=== PATIENT | female | born 1990 | race American Indian/Alaskan Native ===

== ENCOUNTER 2024-03-10 04:31 | Day surgery (SDC) | payer OTHER ==
[2024-03-09 09:32] VITALS: BMI 34.0
[2024-03-10] MEDS ORDERED: PROPOFOL 20 ML ONE (08:13)
[2024-03-10] MEDS ORDERED: FENTANYL CITRATE/PF 50 MCG/ML VIAL ONE ×6 (08:13→10:40)
[2024-03-10] MEDS ORDERED: LIDOCAINE HCL/PF 2% SDV 5ML VIAL ONE (08:13)
[2024-03-10] MEDS ORDERED: MIDAZOLAM HCL 2 MG/2 ML SINGLE DOSE VIAL ONE (08:13)
[2024-03-10] MEDS ORDERED: DEXTROSE 5%-0.45% SALINE 1,000 ML IV SCH (08:30)
[2024-03-10] MEDS ORDERED: ceFAZolin SODIUM 1 GM VIAL ONE (09:07)
[2024-03-10] MEDS ORDERED: DEXAMETHASONE SOD PHOSPHATE 4 MG/1 ML VIAL ONE (09:07)
[2024-03-10] MEDS ORDERED: LIDOCAINE HCL 1%, 10 MG/ML (20ML VIAL) ONE (09:08)
[2024-03-10] MEDS ORDERED: KETOROLAC TROMETHAMINE 30 MG/1 ML VIAL ONE (09:10)
[2024-03-10] MEDS ORDERED: ONDANSETRON 4 MG/2 ML VIAL ONE (09:10)
[2024-03-10] MEDS: ceFAZolin SODIUM 1 GM VIAL IVPB ONE (09:19)
[2024-03-10] MEDS ORDERED: FENTANYL CITRATE/PF 50 MCG/ML VIAL IVPUSH PRN (09:49)
[2024-03-10] MEDS ORDERED: ONDANSETRON 4 MG/2 ML VIAL IVPUSH PRN (09:49)
[2024-03-10] MEDS ORDERED: PROMETHAZINE HCL 25 MG/1 ML VIAL IVPB PRN (09:49)
[2024-03-10] MEDS: LACTATED RINGERS SOLUTION 1,000 ML IV SCH (10:00)
[2024-03-10] MEDS: ACETAMINOPHEN 1000 MG/100 ML BAG IVPB ONE ×2 (10:05→10:51)
[2024-03-10 11:36] VITALS: RESP 18
[2024-03-10] MEDS ORDERED: oxyCODONE HCL 5 MG TABLET ONE ×2 (11:38→12:29)
[2024-03-10] MEDS: oxyCODONE HCL 5 MG TABLET PO PRN ×2 (11:46→12:30)
[2024-03-10 12:55] VITALS: BP 113/70; PULSE 71; TEMP 98.1
== END 2024-03-10 13:31 | disposition home or self-care (01) ==
LOC: JASU-SURG 04:31
PROVIDERS: ATTEND Urology
PROC: 0TC18ZZ Extirpation of Matter from Left Kidney, Via Natural or Artificial Opening Endoscopic (ICD-10-PCS; principal; 2024-03-10 08:30)
DX: N20.2 Calculus of kidney with calculus of ureter (principal)
CPT/HCPCS: 76000-TC-FY; 81025; 94760; C1758; C2617; J0131